=== PATIENT | male | born 1965 | race Caucasian/White ===

== ENCOUNTER 2016-09-23 09:07 | Inpatient (IN) | payer BC ==
[2016-09-23] VITALS (13 sets, daily range): BP systolic 107–125; BP diastolic 64–89
[~2016-09-23] VITALS: Ht 182.9 cm; Wt 95.3 kg
[2016-09-23] MEDS ORDERED: NKM (09:52)
--- NOTE | 2016-09-23 10:23 | Diagnostic Imaging Report ---
Indications: hip pain Findings: Two views of the right hip were obtained. There is narrowing of the right hip joint with osteophyte formation and sclerosis. No fracture is identified. There is no malalignment. Impression: Osteoarthritis
--- NOTE | 2016-09-23 10:57 | Pre-Procedure Note/Attestation ---
Pre-Procedure Note/Attestation Complete Prior to Procedure Planned Procedure: right Procedure Narrative: right total hip replac ement Indications for Procedure Pre-Operative Diagnosis: right hip arthritis Attestation I attest that I discussed the nature of the procedure; its benefits; risks and complications; and alternatives (and the risks and benefits of such alternatives ), prior to the procedure, with the patient (or the patient's legal sales representative girls' apparel). I attest that, if there was a reasonable possibility of needing a blood transfusion, the patient (or the patient's legal sales representative girls' apparel) was given the [facility] standardized written summary, pursuant to the [place] Blood Safety Act ([place] Health and Safety Code # 1645, as amended). I attest that I re-evaluated the patient just prior to the surgery and that there has been no change in the patient's H&P, except as documented below: NUBIA SHOEMAKER Sep 23, 2016 10:57
--- NOTE | 2016-09-23 10:58 | Brief Operative Note ---
Immediate Post Operative Note Operative Note Pre-op Diagnosis: right hip arthritis Procedure: right hipo replacemnet Post-op Diagnosis: right hip arthritis Post-op Diagnosis: same as pre-op Findings: consistent w/pre-op dx studies Surgeon: rosalind Chief Green Officer: stefany Specimen: yes Implant(s) used?: Yes NUBIA SHOEMAKER Sep 23, 2016 10:58
[2016-09-23] MEDS ORDERED: fentaNYL 100 mcg/2 mL IV ONE (11:00)
[2016-09-23] MEDS ORDERED: Ketorolac 30mg Inj ONE (11:00)
[2016-09-23] MEDS ORDERED: LR 1000ml ONE (11:00)
[2016-09-23] MEDS ORDERED: Duramorph PF 5mg/10ml amp ONE (11:04)
[2016-09-23] MEDS ORDERED: Propofol 10mg/ml 20ml IV ONE ×2 (11:05→13:01)
[2016-09-23] MEDS ORDERED: Bacitracin 50000 Units Vial ONE (11:05)
[2016-09-23] MEDS ORDERED: LR 1000ml 1,000 ML IVLG SCH (12:27)
--- NOTE | 2016-09-23 12:27 | Anethesia Preoperative Eval ---
Anesthesia Pre-op PMH/ROS General Date of Evaluation: Sep 23, 2016 Time of Evaluation: 11:05 Anesthesiologist: Adam ASA Score: ASA 2 Mallampati Score Class I : Soft palate, uvula, fauces, pillars visible Class II: Soft palate, uvula, fauces visible Class III: Soft palate, base of uvula visible Class IV: Only hard plate visible Mallampati Classification: Class II Surgeon: Kaiden Diagnosis: R hip DJD Surgical Procedure: R hip arthroplasty Anesthesia History: none Family History: no anesthesia problems Allergies: Coded Allergies: No Known Allergies (Unverified , 09/22/16) Medications: see eMAR Past Medical History Cardiovascular: Denies: CAD, HTN, [place], arrhythmia, other, valve dz Pulmonary: Denies: COPD, [place], asthma, other Gastrointestinal/Genitourinary: Reports: GERD - mild Neurologic/Psychiatric: Denies: CVA, TIA, dementia, depression/anxiety, other HEENT: Denies: [place] (L), [place] (R), cataract (L), cataract (R), glaucoma, other Hematology/Immune: Denies: DVT, anemia, bleeding disorder, other Musculoskeletal/Integumentary: Reports: DJD, Denies: DDD, OA, RA, edema, other PMH Narrative: as above PSxH Narrative: Dental Sx Anesthesia Pre-op Phys. Exam Physician Exam Last Vital Signs Date Time Temp Pulse Resp B/P Pulse Ox O2 Delivery O2 Flow Rate FiO2 09/23/16 10:09 97.7 78 20 114/66 96 Room Air Constitutional: NAD Neurologic: CN 2-12 intact Cardiovascular: RRR, no M/R/G Respiratory: CTA Gastrointestinal: S/NT/ND Airway Exam Mallampati Score: Class II MO: full Neck: flexible ROM: full Teeth: intact Dentures: no lower, no upper Anesthesia Pre-op A/P Labs See chart Studies Pre-op Studies: EKG - NSR Risk Assessment & Plan Assessment: ASA 2 Plan: SAB vs GA Status Change Before Surgery: No Pre-Antibiotics Drug: Ancef 2gr. Given Within 1 Hr of Incision: Yes Time Given: 11:52 SHIELA MAJOR M.D. Sep 23, 2016 12:27
[2016-09-23] MEDS ORDERED: DiphenhydrAMINE 50mg/ml Inj IVP PRN (12:30)
[2016-09-23] MEDS ORDERED: Meperidine 25mg/ml Inj IV PRN (12:30)
--- NOTE | 2016-09-23 13:46 | Diagnostic Imaging Report ---
Indication: pain Findings: Single partial AP view of the pelvis was performed. Right hip replacement noted. No fracture seen. Impression: Intraoperative image
--- NOTE | 2016-09-23 14:47 | Diagnostic Imaging Report ---
Indication: pain Findings: Single AP view of the pelvis was performed. Single partial view of the pelvis demonstrates a right total hip prosthesis which appears satisfactory in position and alignment. There are calcific issues projected over the base of the penis/prostate region. Impression: Status post right total hip replacement. No complications identified
--- NOTE | 2016-09-23 15:15 | Immediate Post-Op Evaluation ---
Immediate Post-Op Evalulation Immediate Post-Op Evalulation Procedure: R hip arthroplasty Date of Evaluation: Sep 23, 2016 Time of Evaluation: 14:12 IV Fluids: 1500 Blood Products: none Estimated Blood Loss: 400 Urinary Output: 200 Blood Pressure Systolic: 108 Blood Pressure Diastolic: 56 Pulse Rate: 72 Respiratory Rate: 20 O2 Sat by Pulse Oximetry: 99 Temperature (Fahrenheit): 97.6 Pain Score (1-10): 1 Nausea: No Vomiting: No Complications none Patient Status: awake, patent, none Hydration Status: adequate SHIELA MAJOR M.D. Sep 23, 2016 15:15
[2016-09-23] MEDS ORDERED: Meperidine 25mg/ml Inj ONE (16:18)
[2016-09-23] MEDS ORDERED: Morphine Sulfate 2mg/ml Inj IVP PRN (17:45)
[2016-09-23] MEDS ORDERED: D5 1/2NS w/KCl 20mEq 1,000 ML IV SCH (18:00)
[2016-09-23] MEDS: ceFAZolin sod 1 GM in D5W 55 ML IV SCH (19:21)
[2016-09-23] MEDS: Norco 7.5mg/325mg tab ORAL PRN (23:07)
[2016-09-24] VITALS: BP 106/55
[2016-09-24] MEDS: ceFAZolin sod 1 GM in D5W 55 ML IV SCH (03:38)
[2016-09-24 04:00] VITALS: BP 132/52
[2016-09-24] MEDS: Norco 7.5mg/325mg tab ORAL PRN ×3 (04:12→17:51)
[2016-09-24 07:02] LABS: BASOPHILS % (AUTO) 0.6 % (0.0-2.0); EOSINOPHILS % (AUTO) 1.2 % (0.0-3.0); LYMPHOCYTES % (AUTO) 17.4 % (20.0-45.0); MEAN CORPUSCULAR VOLUME 86 FL (80-99); MEAN PLATELET VOLUME 6.2 FL (6.5-10.1); MONOCYTES % (AUTO) 11.2 % (1.0-10.0); NEUTROPHILS % (AUTO) 69.6 % (45.0-75.0); PLATELET COUNT 187 K/UL (150-450); RED BLOOD COUNT 4.13 M/UL (4.70-6.10); RED CELL DISTRIBUTION WIDTH 10.7 % (11.6-14.8); WHITE BLOOD COUNT 7.3 K/UL (4.8-10.8)
[2016-09-24 07:04] LABS: INR 1.1 (0.9-1.1); PROTHROMBIN TIME 11.4 SEC (9.30-11.50)
[2016-09-24 07:22] LABS: ANION GAP 12 (5-15); CALCIUM 8.2 mg/dL (8.6-10.2); CARBON DIOXIDE 27 mEQ/L (20-30); CHLORIDE 97 mEQ/L (98-107); GLOMERULAR FILTRATION RATE > 60 mL/min (>60); HEMOLYSIS 9; POTASSIUM 3.9 mEQ/L (3.4-4.9); SODIUM 136 mEQ/L (135-145)
--- NOTE | 2016-09-24 07:38 | General Progress Note ---
Progress Note Progress Note doing well nvi xrays perfect labs stable continue therapy NUBIA SHOEMAKER Sep 24, 2016 07:38
--- NOTE | 2016-09-24 07:40 | 48 Hour Post Anesthesia Eval ---
Post Anesthesia Evaluation Procedure: R hip arthroplasty Date of Evaluation: Sep 24, 2016 Time of Evaluation: 07:14 Blood Pressure Systolic: 132 0: 57 Pulse Rate: 77 Respiratory Rate: 18 Temperature (Fahrenheit): 97.7 O2 Sat by Pulse Oximetry: 96 Airway: patent Nausea: No Vomiting: No Pain Intensity: 2 Hydration Status: adequate Cardiopulmonary Status: Stable Mental Status/LOC: patient returned to baseline Follow-up Care/Observations: 0 Post-Anesthesia Complications: 0 Follow-up care needed: N/A Gume Fernando MD Sep 24, 2016 07:40
[2016-09-24 07:51] VITALS: BP 120/58
[2016-09-24] MEDS: Morphine Sulfate 2mg/ml Inj IVP PRN (08:11)
[2016-09-24] MEDS: Enoxaparin 40mg Inj SUBQ SCH (08:29)
[2016-09-24 12:32] VITALS: BP 118/70
[2016-09-24] MEDS: D5 1/2NS w/KCl 20mEq 1,000 ML IV SCH (13:37)
--- NOTE | 2016-09-24 13:37 | General Progress Note ---
Assessment/Plan Assessment/Plan right hip OA right hip arthropathy PLAN 1. incentive spirometry 2. Lovenox 3. PT evaluation and therapy 4. Hydration 5. Pain management 6. discharge once stable with outpatient follow up Subjective Allergies: Coded Allergies: No Known Allergies (Unverified , 09/22/16) Subjective asked to follow up medically Objective Last 24 Hour Vital Signs Date Time Temp Pulse Resp B/P Pulse Ox O2 Delivery O2 Flow Rate FiO2 09/24/16 12:32 99.0 84 20 118/70 98 Room Air 09/24/16 08:41 99.0 09/24/16 07:51 99.0 72 18 120/58 97 Room Air 09/24/16 07:40 77 18 96 09/24/16 04:00 97.7 77 18 132/52 96 Room Air 09/24/16 00:00 97.9 72 18 106/55 94 Nasal Cannula 2.0 09/23/16 18:00 97.6 88 18 120/64 98 Room Air 09/23/16 17:00 97.9 65 18 107/66 99 Nasal Cannula 3.0 09/23/16 16:45 97.8 66 16 121/70 97 Nasal Cannula 3.0 09/23/16 16:30 61 17 125/71 98 Nasal Cannula 3.0 09/23/16 16:20 62 15 117/67 96 Nasal Cannula 3.0 09/23/16 15:15 60 16 119/69 99 Nasal Cannula 3.0 09/23/16 15:15 72 20 99 09/23/16 15:00 65 17 115/65 98 Nasal Cannula 3.0 09/23/16 14:45 73 15 122/72 100 Nasal Cannula 3.0 09/23/16 14:30 73 15 120/68 97 Nasal Cannula 3.0 09/23/16 14:20 70 14 111/73 99 Nasal Cannula 3.0 09/23/16 14:15 65 15 113/89 100 Nasal Cannula 3.0 09/23/16 14:10 97.6 62 20 120/72 98 Nasal Cannula 3.0 Intake and Output 09/23/16 09/24/16 19:00 07:00 Intake Total 220 ml Output Total 255 ml 650 ml Balance -35 ml -650 ml Intake Oral 100 ml IV Total 120 ml Output Urine Total 200 ml 300 ml Drainage Total 55 ml 350 ml Laboratory Tests 09/24/16 05:35: White Blood Count 7.3, Red Blood Count 4.13L, Hemoglobin 12.4L, Hematocrit 35.4L , Mean Corpuscular Volume 86, Mean Corpuscular Hemoglobin 30.0, Mean Corpuscular Hemoglobin Concent 35.0, Red Cell Distribution Width 10.7L, Platelet Count 187, Mean Platelet Volume 6.2L, Neutrophils (%) (Auto) 69.6, Lymphocytes (%) (Auto) 17.4L, Monocytes (%) (Auto) 11.2H, Eosinophils (%) (Auto ) 1.2, Basophils (%) (Auto) 0.6, Prothrombin Time 11.4, Prothromb Time International Ratio 1.1, Activated Partial Thromboplast Time 26, Sodium Level 136, Potassium Level 3.9, Chloride Level 97L, Carbon Dioxide Level 27, Anion Gap 12, Blood Urea Nitrogen 12, Creatinine 1.0, Estimat Glomerular Filtration Rate > 60, Glucose Level 120H, Calcium Level 8.2L Height (Feet): 6 Height (Inches): 0.00 Weight (Pounds): 210 Objective WDWN NAD clear breath sounds bilaterally without rhonchi or wheeze [id number] without MRG NABS nontender no HSM no CCE nonfocal DARYA MCMAHAN Sep 24, 2016 13:37
[2016-09-24 15:57] VITALS: BP 122/72
[2016-09-24 20:18] VITALS: BP 126/71
[2016-09-24] MEDS: Morphine Sulfate 4mg/ml Inj IVP PRN (21:48)
[2016-09-25] VITALS: BP 126/72
[2016-09-25] MEDS: D5 1/2NS w/KCl 20mEq 1,000 ML IV SCH ×3 (00:12→20:38)
[2016-09-25] MEDS: Norco 7.5mg/325mg tab ORAL PRN ×4 (00:43→16:56)
[2016-09-25] MEDS: Morphine Sulfate 4mg/ml Inj IVP PRN (03:56)
[2016-09-25 04:00] VITALS: BP 141/78
[2016-09-25 06:30] LABS: BASOPHILS % (AUTO) 0.9 % (0.0-2.0); EOSINOPHILS % (AUTO) 1.7 % (0.0-3.0); LYMPHOCYTES % (AUTO) 20.7 % (20.0-45.0); MEAN CORPUSCULAR HEMOGLOBIN 30.2 PG (27.0-31.0); MEAN CORPUSCULAR HGB CONC 34.8 G/DL (32.0-36.0); MEAN CORPUSCULAR VOLUME 87 FL (80-99); MEAN PLATELET VOLUME 5.6 FL (6.5-10.1); MONOCYTES % (AUTO) 11.2 % (1.0-10.0); NEUTROPHILS % (AUTO) 65.6 % (45.0-75.0); PLATELET COUNT 177 K/UL (150-450); RED BLOOD COUNT 4.15 M/UL (4.70-6.10); RED CELL DISTRIBUTION WIDTH 10.9 % (11.6-14.8); WHITE BLOOD COUNT 7.2 K/UL (4.8-10.8)
[2016-09-25 06:58] LABS: ANION GAP 9 (5-15); CALCIUM 8.3 mg/dL (8.6-10.2); CARBON DIOXIDE 30 mEQ/L (20-30); CHLORIDE 103 mEQ/L (98-107); GLOMERULAR FILTRATION RATE > 60 mL/min (>60); HEMOLYSIS 6; POTASSIUM 4.4 mEQ/L (3.4-4.9); SODIUM 142 mEQ/L (135-145)
[2016-09-25 08:17] VITALS: BP 125/66
--- NOTE | 2016-09-25 08:57 | General Progress Note ---
Assessment/Plan Assessment/Plan right hip OA right hip arthropathy orthostasis PLAN 1. incentive spirometry 2. Lovenox 3. PT evaluation and therapy 4. Hydration 5. Pain management 6. discharge once stable with outpatient follow up 7. needs xarelto for 35 days Subjective Allergies: Coded Allergies: No Known Allergies (Unverified , 09/22/16) Subjective asked to follow up medically orthostatic yesterday did not undergo PT Objective Last 24 Hour Vital Signs Date Time Temp Pulse Resp B/P Pulse Ox O2 Delivery O2 Flow Rate FiO2 09/25/16 08:17 98.2 84 20 125/66 97 Room Air 09/25/16 04:00 98.1 83 18 141/78 95 Room Air 09/25/16 00:00 97.2 77 20 126/72 96 Room Air 09/24/16 20:18 98.2 86 18 126/71 96 Room Air 09/24/16 18:50 98.2 09/24/16 18:50 98.2 09/24/16 15:57 98.2 89 19 122/72 95 Room Air 09/24/16 12:32 99.0 84 20 118/70 98 Room Air Intake and Output 09/24/16 09/25/16 19:00 07:00 Intake Total 820 ml 1040 ml Output Total 1560 ml 4960 ml Balance -740 ml -3920 ml Intake Oral 720 ml 440 ml IV Total 100 ml 600 ml Output Urine Total 1400 ml 4800 ml Drainage Total 160 ml 160 ml Laboratory Tests 09/25/16 04:55: White Blood Count 7.2, Red Blood Count 4.15L, Hemoglobin 12.5L, Hematocrit 36.0L , Mean Corpuscular Volume 87, Mean Corpuscular Hemoglobin 30.2, Mean Corpuscular Hemoglobin Concent 34.8, Red Cell Distribution Width 10.9L, Platelet Count 177, Mean Platelet Volume 5.6L, Neutrophils (%) (Auto) 65.6, Lymphocytes (%) (Auto) 20.7, Monocytes (%) (Auto) 11.2H, Eosinophils (%) (Auto) 1.7, Basophils (%) (Auto) 0.9, Sodium Level 142, Potassium Level 4.4, Chloride Level 103, Carbon Dioxide Level 30, Anion Gap 9, Blood Urea Nitrogen 6L, Creatinine 1.0, Estimat Glomerular Filtration Rate > 60, Glucose Level 121H, Calcium Level 8.3L Height (Feet): 6 Height (Inches): 0.00 Weight (Pounds): 210 Objective WDWN NAD clear breath sounds bilaterally without rhonchi or wheeze [id number] without MRG NABS nontender no HSM no CCE nonfocal DARYA MCMAHAN Sep 25, 2016 08:57
[2016-09-25] MEDS: Enoxaparin 40mg Inj SUBQ SCH (09:00)
[2016-09-25 12:47] VITALS: BP 118/64
[2016-09-25] MEDS ORDERED: Meperidine 50mg/ml Inj IVP PRN (14:30)
[2016-09-25 16:00] VITALS: BP 114/65
[2016-09-25] MEDS: Morphine Sulfate 2mg/ml Inj IVP PRN ×2 (18:37→22:11)
[2016-09-25 20:00] VITALS: BP 118/67
[2016-09-26] MEDS: Norco 7.5mg/325mg tab ORAL PRN ×5 (00:32→21:34)
[2016-09-26 00:45] VITALS: BP 103/58
[2016-09-26] MEDS: Morphine Sulfate 4mg/ml Inj IVP PRN (04:04)
[2016-09-26 04:10] VITALS: BP 102/58
[2016-09-26] MEDS: D5 1/2NS w/KCl 20mEq 1,000 ML IV SCH ×2 (06:19→16:06)
[2016-09-26 07:52] LABS: EOSINOPHILS % (AUTO) 3.5 % (0.0-3.0); MEAN CORPUSCULAR HEMOGLOBIN 29.8 PG (27.0-31.0); MEAN CORPUSCULAR HGB CONC 34.5 G/DL (32.0-36.0); MEAN CORPUSCULAR VOLUME 86 FL (80-99); MONOCYTES % (AUTO) 11.3 % (1.0-10.0); NEUTROPHILS % (AUTO) 58.2 % (45.0-75.0); PLATELET COUNT 175 K/UL (150-450); RED BLOOD COUNT 3.84 M/UL (4.70-6.10); RED CELL DISTRIBUTION WIDTH 10.6 % (11.6-14.8); WHITE BLOOD COUNT 6.4 K/UL (4.8-10.8)
[2016-09-26 08:00] VITALS: BP 118/77
[2016-09-26 08:23] LABS: ANION GAP 10 (5-15); CALCIUM 8.6 mg/dL (8.6-10.2); CARBON DIOXIDE 29 mEQ/L (20-30); CHLORIDE 101 mEQ/L (98-107); CREATININE 0.9 mg/dL (0.7-1.2); GLOMERULAR FILTRATION RATE > 60 mL/min (>60); HEMOLYSIS 5; POTASSIUM 3.9 mEQ/L (3.4-4.9); SODIUM 140 mEQ/L (135-145)
[2016-09-26] MEDS: Enoxaparin 40mg Inj SUBQ SCH (09:36)
--- NOTE | 2016-09-26 10:42 | General Progress Note ---
Progress Note Progress Note Doing well Neurovascular intact Xray perfect Labs stable COntinue therapy Dressing change NUBIA SHOEMAKER Sep 26, 2016 10:42
[2016-09-26 11:51] VITALS: BP 140/78
[2016-09-26 16:00] VITALS: BP 120/73
[2016-09-26 20:00] VITALS: BP 136/81
--- NOTE | 2016-09-26 21:54 | General Progress Note ---
Assessment/Plan Assessment/Plan right hip OA right hip arthropathy orthostasis PLAN 1. incentive spirometry 2. Lovenox 3. PT evaluation and therapy 4. Hydration 5. Pain management 6. discharge in am 7. needs xarelto for 35 days Subjective Allergies: Coded Allergies: No Known Allergies (Unverified , 09/22/16) Subjective asked to follow up medically doing well Objective Last 24 Hour Vital Signs Date Time Temp Pulse Resp B/P Pulse Ox O2 Delivery O2 Flow Rate FiO2 09/26/16 20:00 97.5 100 19 136/81 97 Room Air 09/26/16 16:00 98.2 82 18 120/73 95 Room Air 09/26/16 13:00 97.9 09/26/16 11:51 92 20 140/78 96 Room Air 09/26/16 08:00 97.9 93 18 118/77 95 Room Air 09/26/16 04:34 98.7 09/26/16 04:10 98.7 79 21 102/58 97 Room Air 09/26/16 00:45 98.5 83 20 103/58 98 Room Air Intake and Output 09/25/16 09/26/16 19:00 07:00 Intake Total 1420 ml 1330 ml Output Total 1140 ml 5 ml Balance 280 ml 1325 ml Intake Oral 720 ml 480 ml IV Total 700 ml 850 ml Output Urine Total 1100 ml Drainage Total 40 ml 5 ml # Voids 2 Laboratory Tests 09/26/16 05:25: White Blood Count 6.4, Red Blood Count 3.84L, Hemoglobin 11.4L, Hematocrit 33.2L , Mean Corpuscular Volume 86, Mean Corpuscular Hemoglobin 29.8, Mean Corpuscular Hemoglobin Concent 34.5, Red Cell Distribution Width 10.6L, Platelet Count 175, Mean Platelet Volume 6.0L, Neutrophils (%) (Auto) 58.2, Lymphocytes (%) (Auto) 26.0, Monocytes (%) (Auto) 11.3H, Eosinophils (%) (Auto) 3.5H, Basophils (%) (Auto) 1.0, Sodium Level 140, Potassium Level 3.9, Chloride Level 101, Carbon Dioxide Level 29, Anion Gap 10, Blood Urea Nitrogen 5L, Creatinine 0.9, Estimat Glomerular Filtration Rate > 60, Glucose Level 112H, Calcium Level 8.6 Height (Feet): 6 Height (Inches): 0.00 Weight (Pounds): 210 Objective WDWN NAD clear breath sounds bilaterally without rhonchi or wheeze [id number] without MRG NABS nontender no HSM no CCE nonfocal DARYA MCMAHAN Sep 26, 2016 21:54
[2016-09-27 00:31] VITALS: BP 110/68
[2016-09-27] MEDS: D5 1/2NS w/KCl 20mEq 1,000 ML IV SCH (02:09)
[2016-09-27] MEDS: Norco 7.5mg/325mg tab ORAL PRN ×3 (02:10→09:54)
[2016-09-27 04:54] VITALS: BP 117/68
[2016-09-27 08:41] VITALS: BP 106/66
[2016-09-27] MEDS: Enoxaparin 40mg Inj SUBQ SCH (08:53)
--- NOTE | 2016-09-27 09:10 | General Progress Note ---
Assessment/Plan Assessment/Plan right hip OA right hip arthropathy orthostasis PLAN 1. incentive spirometry 2. drain out 3. PT evaluation and therapy 4. Hydration encouraged 5. Pain management 6. discharge today 7. needs xarelto for 35 days Subjective Allergies: Coded Allergies: No Known Allergies (Unverified , 09/22/16) Subjective ready to go home Objective Last 24 Hour Vital Signs Date Time Temp Pulse Resp B/P Pulse Ox O2 Delivery O2 Flow Rate FiO2 09/27/16 08:41 97.9 85 20 106/66 96 Room Air 09/27/16 04:54 98.1 76 19 117/68 95 Room Air 09/27/16 00:31 98.2 89 21 110/68 95 Room Air 09/26/16 20:00 97.5 100 19 136/81 97 Room Air 09/26/16 16:00 98.2 82 18 120/73 95 Room Air 09/26/16 13:00 97.9 09/26/16 11:51 92 20 140/78 96 Room Air Intake and Output 09/26/16 09/27/16 19:00 07:00 Intake Total 1240 ml Output Total 2650 ml Balance 1240 ml -2650 ml Intake Oral 840 ml IV Total 400 ml Output Urine Total 2650 ml # Voids 5 # Bowel Movements 1 Height (Feet): 6 Height (Inches): 0.00 Weight (Pounds): 210 Objective WDWN NAD clear breath sounds bilaterally without rhonchi or wheeze [id number] without MRG NABS nontender no HSM no CCE nonfocal DARYA MCMAHAN Sep 27, 2016 09:10
[2016-09-27] MEDS ORDERED: NORCO 10-325 T1 EACH ORAL (11:10)
[2016-09-27] MEDS ORDERED: XARELTO10 MG ORAL (11:11)
--- NOTE | 2016-09-29 09:17 | Discharge Summary ---
Discharge Summary Hospital Course Date of Admission Sep 23, 2016 at 09:07 Date of Discharge Sep 27, 2016 at 12:00 Admitting Diagnosis right hip osteoarthritis Reason for Hospitalization: elective surgery HPI Jose D Del Castillo is a 51 year old male who was admitted on Sep 23, 2016 at 09:07 for Rt Hip Osteoarthritis for elective surgery Consultations dr Rutherford IM Procedures 09/23 - R total hip replacement dr. SHOEMAKER, Hospital Course patient admitted for elective surgery course of recovery uneventful initially IVF, hydrated to keep BP in range IS at bedside, taught and encouraged to use while in bed pain management provided PT eval and Rx A/coagulation, on dc Xarelto x 35 days surgeon close;y followed ambulated, pain controlled, incision clean, voided freely , tolerate diet DISCHARGE DIAGNOSIS right hip OA s/p Right total hip replacement postoperative pain orthostasis Discharge Medications Continued Medications: Hydrocodone Bit/Acetaminophen 10-325* ([place] 10-325*) 1 Each Tablet 1 TAB ORAL Q4H PRN for For Pain, #60 TAB 0 Refills PRN PAIN Rivaroxaban (Xarelto*) 10 Mg Tablet 10 MG ORAL DAILY, #35 TAB 0 Refills Discharge Condition Upon Discharge: stable Discharge Disposition Patient was discharged to Home (01) Discharge Diagnoses: Discharge Instructions Discharge Instructions Special Instructions I have been assigned to complete a D/C Summary on this account. I was not involved in the patient management Luna Scherer NP ([place]) Sep 29, 2016 09:17
--- NOTE | 2016-09-30 15:38 | Operative Note - Dictated ---
DATE OF OPERATION: 09/23/2016 NOTE: INCOMPREHENSIBLE AUDIO QUALITY PREOPERATIVE DIAGNOSES: 1. Right hip end-stage osteoarthritis. 2. Right hip adduction contracture. 3. Right hip synovitis. POSTOPERATIVE DIAGNOSES: 1. Right hip end-stage osteoarthritis. 2. Right hip adduction contracture. 3. Right hip synovitis. PROCEDURES: 1. Right total hip replacement with a Sesar prosthesis , 54 cut, elevated 15 degree liner Modifier 22 secondary to difficulty due to changes and measurements and (dysplasia). 2. Synovectomy. 3. Adductor contracture release. SURGEON: Kenroy Richey M.D. PARK NATURALIST: Charbel Medina M.D. 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 He is optimized on conservative treatment. He has end-stage findings as per his x-rays. I explained to him the surgery and risks being infection, bleeding, anesthetic risks, neurovascular damage, DVT, PE, or failure of the operation, mortality, morbidity from the above causes not including the above causes. The patient agreed and consents were obtained. OPERATIVE NOTE: Under the benefit of endotracheal intubation and IV sedation and epidural anesthesia, the patient's hip was prepped and draped in an appropriate manner. Posterolateral incision was made after giving antibiotics and incised through the subcutaneous tissue down through TFL and down through the short external rotators. I then proceeded to do acute capsulectomy removing the labrum distal to the hip. The hip had indeed end-stage changes of an osteotomy ( ) and then removed the to be a 54, started reaming centrally . I reamed with a 48 up to a 53 reamer with alignment. I had 15 degrees of anteversion and further debrided laterally with good coverage and then placed the cup in after medializing the cup. This was done successfully and I was very pleased. was placed in 25 mm screw. X-ray had confirmed perfect alignment. I then proceeded to work on the femur. With 10 degrees of anteversion, I started broaching down and started from the (01, 201, 202, 203, 204, and 205) off the stem, after multiple trials it was perfect . Leg lengths appeared to be equal, intraoperative measurements as well as x-rays. I then proceeded to offset stem with -35, reduced it. He had full stability, full flexion, full extension, minimal instability with and full stability with flexion and internal rotation. I irrigated the wound copiously closing the TFL with #1 Vicryl, subcutaneous tissue with 2-0 Vicryl, and skin with nylon. The patient was taken to recovery room in stable condition. X-rays confirmed perfect alignment without any complications. Neurovascular was intact. Also, abductor contracture release was done as well as synovectomy. Kenroy Richey M.D. DR: MARCELINO JOB#: [id number] CC: ROSE
== END 2016-09-27 12:00 | disposition home or self-care (01) | DRG 470 ==
LOC: SDSOVERFLO 09:07 → 3E 17:11
PROC: 0SB90ZZ Excision of Right Hip Joint, Open Approach (ICD-10-PCS; principal; 2016-09-23 11:00)
PROC: 0SN90ZZ Release Right Hip Joint, Open Approach (ICD-10-PCS; principal; 2016-09-23 11:00)
PROC: 0SR903A Replacement of Right Hip Joint with Ceramic Synthetic Substitute, Uncemented, Open Approach (ICD-10-PCS; principal; 2016-09-23 11:00)
DX: M16.11 Unilateral primary osteoarthritis, right hip (principal); G89.18 Other acute postprocedural pain; M24.551 Contracture, right hip; M65.88 Other synovitis and tenosynovitis, other site; I95.1 Orthostatic hypotension
CPT/HCPCS: 36415; 72170; 80048; 85025; 85610; 85730; 86850; 86900; 86901; 86920; 87081; 94003; 94150; J2180